=== PATIENT | male | born 1950 | race Caucasian/White ===

== ENCOUNTER 2017-09-01 18:20 | Inpatient (IN) | payer MEDICARE ==
[~2017-09-01] VITALS: Ht 167.6 cm; Wt 81.2 kg
[2017-09-01 18:25] VITALS: BP 146/81
[2017-09-01] MEDS ORDERED: DOCUSATE SODIUM 283 MG/5 ML MINI-ENEMA PR PRN (19:15)
[2017-09-01] MEDS ORDERED: ACETAMINOPHEN 325 MG TABLET PO PRN (19:15)
[2017-09-01] MEDS ORDERED: DEXTROSE 50%-WATER 25 GM/50 ML SYRINGE IVP PRN (20:30)
[2017-09-01] MEDS: DOCUSATE SODIUM 100 MG CAPSULE PO SCH (20:38)
[2017-09-01] MEDS: TAMSULOSIN HCL 0.4 MG CAPSULE PO SCH (20:38)
[2017-09-01] MEDS: FAMOTIDINE 20 MG TABLET PO SCH (20:38)
[2017-09-01 20:48] LABS: APPEARANCE,URINE CLEAR (CLEAR); GLUCOSE, URINE (UA) NEGATIVE (NEGATIVE); KETONES,URINE NEGATIVE (NEGATIVE); LEUKOCYTE ESTERASE ,URINE NEGATIVE (NEGATIVE); OCCULT BLOOD,URINE NEGATIVE (NEGATIVE); PH,URINE 6.5 (5.0-8.0); PROTEIN,URINE NEGATIVE (NEGATIVE)
[2017-09-01 20:51] LABS: ADD UA MICROSCOPIC NO
[2017-09-01] MEDS ORDERED: SENNA 187 MG TABLET PO SCH (21:00)
[2017-09-01] MEDS: INSULIN ASPART 100 UNITS/ML SQ PRN (21:24)
[2017-09-02 00:13] LABS: GLUCOSE,POINT OF CARE 173 MG/DL (70-110)
[2017-09-02 00:58] VITALS: BP 109/59
[2017-09-02 06:18] LABS: GLUCOSE,POINT OF CARE 84 MG/DL (70-110)
[2017-09-02 06:54] LABS: BASOPHILS % (AUTO) 0.8 % (0.0-2.0); EOSINOPHILS % (AUTO) 3.7 % (1.0-6.0); HEMATOCRIT 27.9 % (41-53); LYMPHOCYTES # (AUTO) 1.2 K/uL (1.0-4.8); LYMPHOCYTES % (AUTO) 40.1 % (22.0-44.0); MEAN CORPUSCULAR HEMOGLOBIN 36.6 pg (26.0-34.0); MEAN CORPUSCULAR HGB CONC 35.7 G/dL (31.0-37.0); MEAN CORPUSCULAR VOLUME 103 fL (80-100); MONOCYTES # (AUTO) 0.2 K/uL (0.1-1.0); MONOCYTES % (AUTO) 7.5 % (2.0-9.0); NEUTROPHILS # (AUTO) 1.5 K/uL (1.8-7.7); NEUTROPHILS % (AUTO) 47.9 % (40.0-70.0); RED BLOOD CELL COUNT(AUTO) 2.72 MIL/uL (4.50-5.90); RED CELL DISTRIBUTION WIDTH 15.2 % (11.5-14.5); WHITE BLOOD COUNT (AUTO) 3.1 K/uL (4.5-11.0)
[2017-09-02 07:05] LABS: ALANINE AMINOTRANSFERASE 41 U/L (12-78); ALBUMIN 2.1 g/dL (3.4-5.0); ANION GAP 7 mmol/L (8-16); ASPARTATE AMINOTRANSFERASE 85 U/L (15-37); BILIRUBIN,TOTAL 2.4 mg/dL (0.1-1.0); CALCIUM, TOTAL 7.7 mg/dL (8.8-10.5); CARBON DIOXIDE 22 mmol/L (22-29); CHLORIDE 109 mmol/L (98-107); CREATININE 0.78 mg/dL (0.60-1.30); GLOMERULAR FILTR. RATE CALC > 60 mL/min (>60); POTASSIUM 3.8 mmol/L (3.5-5.1); SODIUM SERUM 138 mmol/L (136-145); TOTAL PROTEIN, SERUM 6.2 g/dL (6.4-8.2); UREA NITROGEN, BLOOD 16 mg/dL (7-18)
[2017-09-02 07:44] VITALS: BP 118/58
[2017-09-02] MEDS: FAMOTIDINE 20 MG TABLET PO SCH ×2 (09:30→21:08)
[2017-09-02] MEDS: DOCUSATE SODIUM 100 MG CAPSULE PO SCH ×2 (09:31→21:08)
[2017-09-02] MEDS: LOSARTAN POTASSIUM 25 MG TABLET PO SCH (09:34)
[2017-09-02 10:00] LABS: PLATELET COUNT (AUTO) 55 K/uL (150-450)
[2017-09-02] MEDS ORDERED: TEMAZEPAM 15 MG CAPSULE PO PRN (10:15)
[2017-09-02 12:03] LABS: GLUCOSE,POINT OF CARE 137 MG/DL (70-110)
[2017-09-02 15:23] VITALS: BP 120/65
[2017-09-02 17:59] LABS: GLUCOSE,POINT OF CARE 134 MG/DL (70-110)
[2017-09-02] MEDS: SENNA 187 MG TABLET PO SCH (21:09)
[2017-09-02] MEDS: TAMSULOSIN HCL 0.4 MG CAPSULE PO SCH (21:09)
[2017-09-02 22:23] LABS: GLUCOSE,POINT OF CARE 134 MG/DL (70-110)
[2017-09-03 05:00] VITALS: BP 108/49
[2017-09-03 05:50] LABS: GLUCOSE,POINT OF CARE 85 MG/DL (70-110)
[2017-09-03 07:08] VITALS: BP 137/72
[2017-09-03] MEDS: DOCUSATE SODIUM 100 MG CAPSULE PO SCH ×2 (08:05→20:20)
[2017-09-03] MEDS: LOSARTAN POTASSIUM 25 MG TABLET PO SCH (08:05)
[2017-09-03] MEDS: FAMOTIDINE 20 MG TABLET PO SCH ×2 (08:06→20:20)
[2017-09-03 12:57] LABS: GLUCOSE,POINT OF CARE 149 MG/DL (70-110)
[2017-09-03] MEDS: INSULIN ASPART 100 UNITS/ML SQ PRN ×2 (13:05→18:47)
[2017-09-03 15:26] VITALS: BP 144/72
[2017-09-03 17:03] LABS: GLUCOSE,POINT OF CARE 149 MG/DL (70-110)
[2017-09-03] MEDS: TAMSULOSIN HCL 0.4 MG CAPSULE PO SCH (20:20)
[2017-09-03] MEDS: SENNA 187 MG TABLET PO SCH (20:20)
[2017-09-03 20:23] LABS: GLUCOSE,POINT OF CARE 138 MG/DL (70-110)
[2017-09-04 00:04] VITALS: BP 131/67
[2017-09-04 06:13] LABS: GLUCOSE,POINT OF CARE 80 MG/DL (70-110)
[2017-09-04 07:10] VITALS: BP 114/51
[2017-09-04] MEDS: FAMOTIDINE 20 MG TABLET PO SCH ×2 (07:57→20:54)
[2017-09-04] MEDS: DOCUSATE SODIUM 100 MG CAPSULE PO SCH ×2 (07:57→21:00)
[2017-09-04] MEDS: LOSARTAN POTASSIUM 25 MG TABLET PO SCH (07:58)
[2017-09-04 12:23] LABS: GLUCOSE,POINT OF CARE 129 MG/DL (70-110)
[2017-09-04 15:30] VITALS: BP 123/60
[2017-09-04 17:27] LABS: GLUCOSE,POINT OF CARE 132 MG/DL (70-110)
[2017-09-04] MEDS: TAMSULOSIN HCL 0.4 MG CAPSULE PO SCH (20:54)
[2017-09-04] MEDS: SENNA 187 MG TABLET PO SCH (21:00)
[2017-09-04 21:02] LABS: GLUCOSE,POINT OF CARE 148 MG/DL (70-110)
[2017-09-04] MEDS: INSULIN ASPART 100 UNITS/ML SQ PRN (21:31)
[2017-09-04 23:50] VITALS: BP 125/54
[2017-09-05 06:07] LABS: GLUCOSE,POINT OF CARE 80 MG/DL (70-110)
[2017-09-05 08:37] VITALS: BP 122/68
[2017-09-05] MEDS: LOSARTAN POTASSIUM 25 MG TABLET PO SCH (08:40)
[2017-09-05] MEDS: FAMOTIDINE 20 MG TABLET PO SCH ×2 (08:40→20:49)
[2017-09-05] MEDS: DOCUSATE SODIUM 100 MG CAPSULE PO SCH ×2 (08:41→20:50)
[2017-09-05 11:48] LABS: GLUCOSE,POINT OF CARE 132 MG/DL (70-110)
[2017-09-05 15:29] VITALS: BP 116/65
[2017-09-05 17:23] LABS: GLUCOSE,POINT OF CARE 130 MG/DL (70-110)
[2017-09-05] MEDS: TAMSULOSIN HCL 0.4 MG CAPSULE PO SCH (20:49)
[2017-09-05] MEDS: SENNA 187 MG TABLET PO SCH (20:50)
[2017-09-05 21:57] LABS: GLUCOSE,POINT OF CARE 132 MG/DL (70-110)
[2017-09-06] VITALS: BP 149/70
[2017-09-06 06:02] LABS: GLUCOSE,POINT OF CARE 82 MG/DL (70-110)
[2017-09-06 07:00] VITALS: BP 128/65
[2017-09-06] MEDS: FAMOTIDINE 20 MG TABLET PO SCH ×2 (08:04→20:59)
[2017-09-06] MEDS: LOSARTAN POTASSIUM 25 MG TABLET PO SCH (08:04)
[2017-09-06] MEDS: DOCUSATE SODIUM 100 MG CAPSULE PO SCH ×2 (08:04→20:58)
[2017-09-06 15:05] VITALS: BP 137/57
[2017-09-06] MEDS: INSULIN ASPART 100 UNITS/ML SQ PRN (18:00)
[2017-09-06] MEDS: SENNA 187 MG TABLET PO SCH (20:58)
[2017-09-06] MEDS: TAMSULOSIN HCL 0.4 MG CAPSULE PO SCH (20:59)
[2017-09-06 23:27] LABS: GLUCOSE,POINT OF CARE 125 MG/DL (70-110)
[2017-09-07 00:23] VITALS: BP 141/62
[2017-09-07 06:33] LABS: GLUCOSE,POINT OF CARE 125 MG/DL (70-110)
[2017-09-07 07:45] VITALS: BP 131/63
[2017-09-07] MEDS: LOSARTAN POTASSIUM 25 MG TABLET PO SCH (07:50)
[2017-09-07] MEDS: FAMOTIDINE 20 MG TABLET PO SCH ×2 (07:51→20:50)
[2017-09-07] MEDS: DOCUSATE SODIUM 100 MG CAPSULE PO SCH ×2 (07:51→20:49)
[2017-09-07] MEDS: INSULIN ASPART 100 UNITS/ML SQ PRN (12:42)
[2017-09-07 13:32] LABS: GLUCOSE,POINT OF CARE 154 MG/DL (70-110)
[2017-09-07 15:20] VITALS: BP 133/63
[2017-09-07 17:58] LABS: GLUCOSE COMMENT 1 Received Meds; GLUCOSE,POINT OF CARE 144 MG/DL (70-110)
[2017-09-07 17:58] LABS: GLUCOSE,POINT OF CARE 129 MG/DL (70-110)
[2017-09-07 17:58] LABS: GLUCOSE,POINT OF CARE 127 MG/DL (70-110)
[2017-09-07] MEDS: TAMSULOSIN HCL 0.4 MG CAPSULE PO SCH (20:49)
[2017-09-07] MEDS: SENNA 187 MG TABLET PO SCH (20:50)
[2017-09-07 23:35] VITALS: BP 142/73
[2017-09-08 03:42] LABS: GLUCOSE,POINT OF CARE 133 MG/DL (70-110)
[2017-09-08 05:53] LABS: GLUCOSE,POINT OF CARE 71 MG/DL (70-110)
[2017-09-08 06:14] LABS: BASOPHILS # (AUTO) 0.03 K/uL (0.00-0.20); BASOPHILS % (AUTO) 0.8 % (0.0-2.0); EOSINOPHILS % (AUTO) 2.81 % (1.0-6.0); HEMATOCRIT 29.8 % (41-53); HEMOGLOBIN 10.7 g/dL (13.5-17.5); LYMPHOCYTES # (AUTO) 1.4 K/uL (1.0-4.8); LYMPHOCYTES % (AUTO) 40.4 % (22.0-44.0); MEAN CORPUSCULAR HEMOGLOBIN 36.1 pg (26.0-34.0); MEAN CORPUSCULAR HGB CONC 35.8 G/dL (31.0-37.0); MEAN CORPUSCULAR VOLUME 101 fL (80-100); MONOCYTES # (AUTO) 0.3 K/uL (0.1-1.0); MONOCYTES % (AUTO) 7.9 % (2.0-9.0); NEUTROPHILS # (AUTO) 1.7 K/uL (1.8-7.7); NEUTROPHILS % (AUTO) 48.2 % (40.0-70.0); RED BLOOD CELL COUNT(AUTO) 2.96 MIL/uL (4.50-5.90); RED CELL DISTRIBUTION WIDTH 15.3 % (11.5-14.5); WHITE BLOOD COUNT (AUTO) 3.4 K/uL (4.5-11.0)
[2017-09-08 06:34] LABS: ALANINE AMINOTRANSFERASE 42 U/L (12-78); ALBUMIN 2.3 g/dL (3.4-5.0); ANION GAP 6 mmol/L (8-16); ASPARTATE AMINOTRANSFERASE 83 U/L (15-37); BILIRUBIN,TOTAL 2.1 mg/dL (0.1-1.0); CARBON DIOXIDE 23 mmol/L (22-29); CHLORIDE 105 mmol/L (98-107); CREATININE 0.71 mg/dL (0.60-1.30); GLOMERULAR FILTR. RATE CALC > 60 mL/min (>60); POTASSIUM 4.1 mmol/L (3.5-5.1); SODIUM SERUM 134 mmol/L (136-145); TOTAL PROTEIN, SERUM 6.4 g/dL (6.4-8.2); UREA NITROGEN, BLOOD 17 mg/dL (7-18)
[2017-09-08 07:19] LABS: PLATELET COUNT (AUTO) 52 K/uL (150-450)
[2017-09-08] MEDS: FAMOTIDINE 20 MG TABLET PO SCH ×2 (07:59→20:34)
[2017-09-08] MEDS: LOSARTAN POTASSIUM 25 MG TABLET PO SCH (07:59)
[2017-09-08] MEDS: DOCUSATE SODIUM 100 MG CAPSULE PO SCH ×2 (07:59→20:34)
[2017-09-08 08:07] LABS: RBC MORPHOLOGY COMMENT ABNORMAL RBC MORPH
[2017-09-08 08:16] VITALS: BP 133/66
[2017-09-08 15:34] VITALS: BP 130/63
[2017-09-08 17:42] LABS: GLUCOSE,POINT OF CARE 129 MG/DL (70-110)
[2017-09-08 17:52] LABS: GLUCOSE,POINT OF CARE 105 MG/DL (70-110)
[2017-09-08] MEDS: TAMSULOSIN HCL 0.4 MG CAPSULE PO SCH (20:34)
[2017-09-08] MEDS: SENNA 187 MG TABLET PO SCH (20:34)
[2017-09-08 23:42] LABS: GLUCOSE,POINT OF CARE 119 MG/DL (70-110)
[2017-09-09 01:51] VITALS: BP 120/55
[2017-09-09 06:12] LABS: GLUCOSE,POINT OF CARE 72 MG/DL (70-110)
[2017-09-09 07:35] VITALS: BP 112/48
[2017-09-09] MEDS: FOLIC ACID 1 MG TABLET PO SCH (08:00)
[2017-09-09] MEDS: DOCUSATE SODIUM 100 MG CAPSULE PO SCH ×2 (08:00→20:05)
[2017-09-09] MEDS: FAMOTIDINE 20 MG TABLET PO SCH ×2 (08:01→20:05)
[2017-09-09] MEDS: LOSARTAN POTASSIUM 25 MG TABLET PO SCH (08:01)
[2017-09-09 11:00] VITALS: BP 105/57
[2017-09-09 12:22] LABS: GLUCOSE,POINT OF CARE 145 MG/DL (70-110)
[2017-09-09] MEDS: INSULIN ASPART 100 UNITS/ML SQ PRN ×2 (13:10→18:07)
[2017-09-09 15:43] VITALS: BP 131/59
[2017-09-09 18:17] LABS: GLUCOSE COMMENT 1 Received Meds; GLUCOSE,POINT OF CARE 149 MG/DL (70-110)
[2017-09-09] MEDS: ACETAMINOPHEN 325 MG TABLET PO PRN (20:05)
[2017-09-09] MEDS: SENNA 187 MG TABLET PO SCH (20:05)
[2017-09-09] MEDS: TAMSULOSIN HCL 0.4 MG CAPSULE PO SCH (20:05)
[2017-09-09 22:32] LABS: GLUCOSE,POINT OF CARE 113 MG/DL (70-110)
[2017-09-10 00:38] VITALS: BP 119/59
[2017-09-10 06:28] LABS: GLUCOSE,POINT OF CARE 84 MG/DL (70-110)
[2017-09-10 07:40] VITALS: BP 119/58
[2017-09-10] MEDS: DOCUSATE SODIUM 100 MG CAPSULE PO SCH ×2 (08:39→21:03)
[2017-09-10] MEDS: FAMOTIDINE 20 MG TABLET PO SCH ×2 (08:39→21:03)
[2017-09-10] MEDS: LOSARTAN POTASSIUM 25 MG TABLET PO SCH (08:40)
[2017-09-10] MEDS: FOLIC ACID 1 MG TABLET PO SCH (08:40)
[2017-09-10] MEDS: INSULIN ASPART 100 UNITS/ML SQ PRN (12:34)
[2017-09-10 12:37] LABS: GLUCOSE COMMENT 1 Received Meds; GLUCOSE,POINT OF CARE 146 MG/DL (70-110)
[2017-09-10 15:07] VITALS: BP 128/63
[2017-09-10] MEDS: SENNA 187 MG TABLET PO SCH (21:03)
[2017-09-10] MEDS: TAMSULOSIN HCL 0.4 MG CAPSULE PO SCH (21:04)
[2017-09-10 21:47] LABS: GLUCOSE,POINT OF CARE 116 MG/DL (70-110)
[2017-09-10 21:52] LABS: GLUCOSE,POINT OF CARE 127 MG/DL (70-110)
[2017-09-11] VITALS (7 sets, daily range): BP systolic 108–175; BP diastolic 60–88
[2017-09-11] MEDS: LOSARTAN POTASSIUM 25 MG TABLET PO SCH (09:00)
[2017-09-11] MEDS: DOCUSATE SODIUM 100 MG CAPSULE PO SCH ×2 (09:44→21:06)
[2017-09-11] MEDS: FOLIC ACID 1 MG TABLET PO SCH (09:44)
[2017-09-11] MEDS: FAMOTIDINE 20 MG TABLET PO SCH ×2 (09:44→21:06)
[2017-09-11 12:48] LABS: GLUCOSE,POINT OF CARE 160 MG/DL (70-110)
[2017-09-11 12:48] LABS: GLUCOSE,POINT OF CARE 79 MG/DL (70-110)
[2017-09-11 17:33] LABS: GLUCOSE,POINT OF CARE 123 MG/DL (70-110)
[2017-09-11] MEDS: SENNA 187 MG TABLET PO SCH (21:06)
[2017-09-11] MEDS: TAMSULOSIN HCL 0.4 MG CAPSULE PO SCH (21:06)
[2017-09-11 21:43] LABS: GLUCOSE,POINT OF CARE 117 MG/DL (70-110)
[2017-09-11] MEDS: HydrALAZINE HCL 10 MG TABLET PO PRN ×2 (22:40→22:52)
[2017-09-11] MEDS: CALCIUM CARBONATE 500 MG CHEWABLE TABLET CHEW PRN (22:52)
[2017-09-11] MEDS ORDERED: HydrALAZINE HCL 10 MG TABLET PO ONE (23:00)
[2017-09-11 23:29] LABS: BASOPHILS % (AUTO) 2.3 % (0.0-2.0); HEMATOCRIT 32.9 % (41-53); HEMOGLOBIN 11.8 g/dL (13.5-17.5); LYMPHOCYTES # (AUTO) 1.5 K/uL (1.0-4.8); LYMPHOCYTES % (AUTO) 33.1 % (22.0-44.0); MEAN CORPUSCULAR HEMOGLOBIN 36.5 pg (26.0-34.0); MEAN CORPUSCULAR HGB CONC 35.9 G/dL (31.0-37.0); MEAN CORPUSCULAR VOLUME 102 fL (80-100); MONOCYTES # (AUTO) 0.1 K/uL (0.1-1.0); MONOCYTES % (AUTO) 2.2 % (2.0-9.0); NEUTROPHILS # (AUTO) 2.8 K/uL (1.8-7.7); NEUTROPHILS % (AUTO) 60.4 % (40.0-70.0); PLATELET COUNT (AUTO) 57 K/uL (150-450); RED BLOOD CELL COUNT(AUTO) 3.24 MIL/uL (4.50-5.90); RED CELL DISTRIBUTION WIDTH 14.9 % (11.5-14.5); WHITE BLOOD COUNT (AUTO) 4.6 K/uL (4.5-11.0)
[2017-09-11 23:43] LABS: ANION GAP 5 mmol/L (8-16); CALCIUM, TOTAL 8.2 mg/dL (8.8-10.5); CARBON DIOXIDE 26 mmol/L (22-29); CHLORIDE 103 mmol/L (98-107); CREATININE 0.82 mg/dL (0.60-1.30); GLOMERULAR FILTR. RATE CALC > 60 mL/min (>60); POTASSIUM 4.1 mmol/L (3.5-5.1); SODIUM SERUM 134 mmol/L (136-145); UREA NITROGEN, BLOOD 18 mg/dL (7-18)
[2017-09-11] MEDS: ACETAMINOPHEN 325 MG TABLET PO PRN (23:49)
[2017-09-12 00:17] LABS: RBC MORPHOLOGY COMMENT ABNORMAL RBC MORPH
[2017-09-12 00:49] VITALS: BP 147/69
[2017-09-12 06:03] LABS: GLUCOSE,POINT OF CARE 103 MG/DL (70-110)
[2017-09-12 06:04] VITALS: BP 94/50
[2017-09-12 07:15] VITALS: BP 96/52
[2017-09-12] MEDS: FAMOTIDINE 20 MG TABLET PO SCH ×2 (08:09→21:21)
[2017-09-12] MEDS: FOLIC ACID 1 MG TABLET PO SCH (08:09)
[2017-09-12] MEDS: DOCUSATE SODIUM 100 MG CAPSULE PO SCH ×2 (08:10→21:21)
[2017-09-12] MEDS: LOSARTAN POTASSIUM 25 MG TABLET PO SCH (08:10)
[2017-09-12 08:47] LABS: BASOPHILS # (AUTO) 0.04 K/uL (0.00-0.20); BASOPHILS % (AUTO) 0.5 % (0.0-2.0); EOSINOPHILS # (AUTO) 0.01 K/uL (0.00-0.70); EOSINOPHILS % (AUTO) 0.07 % (1.0-6.0); HEMATOCRIT 30.6 % (41-53); HEMOGLOBIN 10.6 g/dL (13.5-17.5); LYMPHOCYTES # (AUTO) 1.4 K/uL (1.0-4.8); LYMPHOCYTES % (AUTO) 18.7 % (22.0-44.0); MEAN CORPUSCULAR HEMOGLOBIN 35.9 pg (26.0-34.0); MEAN CORPUSCULAR HGB CONC 34.7 G/dL (31.0-37.0); MEAN CORPUSCULAR VOLUME 104 fL (80-100); MONOCYTES # (AUTO) 0.3 K/uL (0.1-1.0); MONOCYTES % (AUTO) 3.4 % (2.0-9.0); NEUTROPHILS # (AUTO) 5.9 K/uL (1.8-7.7); NEUTROPHILS % (AUTO) 77.3 % (40.0-70.0); RED BLOOD CELL COUNT(AUTO) 2.96 MIL/uL (4.50-5.90); RED CELL DISTRIBUTION WIDTH 14.7 % (11.5-14.5); WHITE BLOOD COUNT (AUTO) 7.7 K/uL (4.5-11.0)
[2017-09-12 08:48] LABS: ANION GAP 6 mmol/L (8-16); CALCIUM, TOTAL 7.9 mg/dL (8.8-10.5); CARBON DIOXIDE 23 mmol/L (22-29); CHLORIDE 103 mmol/L (98-107); CREATININE 0.99 mg/dL (0.60-1.30); GLOMERULAR FILTR. RATE CALC > 60 mL/min (>60); POTASSIUM 4.1 mmol/L (3.5-5.1); SODIUM SERUM 132 mmol/L (136-145); UREA NITROGEN, BLOOD 22 mg/dL (7-18)
[2017-09-12 09:36] LABS: PLATELET COUNT (AUTO) 50 K/uL (150-450)
[2017-09-12 09:55] LABS: GLUCOSE, URINE (UA) NEGATIVE (NEGATIVE); KETONES,URINE TRACE mg/dL (NEGATIVE); LEUKOCYTE ESTERASE ,URINE SMALL (NEGATIVE); OCCULT BLOOD,URINE NEGATIVE (NEGATIVE); PROTEIN,URINE NEGATIVE (NEGATIVE)
[2017-09-12 10:08] LABS: APPEARANCE,URINE HAZY (CLEAR); RBC,URINE None Seen /HPF (0-2)
[2017-09-12 10:10] LABS: SQUAMOUS EPITHELIAL CELL,UR Rare /LPF (None Seen)
[2017-09-12 10:39] VITALS: BP 113/52
[2017-09-12 11:59] LABS: GLUCOSE,POINT OF CARE 124 MG/DL (70-110)
[2017-09-12 15:15] VITALS: BP 116/58
[2017-09-12 17:24] LABS: GLUCOSE,POINT OF CARE 107 MG/DL (70-110)
[2017-09-12 20:09] VITALS: BP 128/62
[2017-09-12] MEDS: CALCIUM CARBONATE 500 MG CHEWABLE TABLET CHEW PRN (20:15)
[2017-09-12] MEDS: SENNA 187 MG TABLET PO SCH (21:21)
[2017-09-12] MEDS: CALCIUM CIT/VITAMIN D3 200 MG-250 UNITS TABLET PO SCH (21:21)
[2017-09-12] MEDS: TAMSULOSIN HCL 0.4 MG CAPSULE PO SCH (21:21)
[2017-09-12 23:59] LABS: GLUCOSE,POINT OF CARE 108 MG/DL (70-110)
[2017-09-13 00:08] VITALS: BP 149/75
[2017-09-13 04:00] VITALS: BP 126/58
[2017-09-13 06:15] LABS: GLUCOSE,POINT OF CARE 108 MG/DL (70-110)
[2017-09-13 06:22] LABS: BASOPHILS # (AUTO) 0.02 K/uL (0.00-0.20); BASOPHILS % (AUTO) 0.5 % (0.0-2.0); EOSINOPHILS # (AUTO) 0.08 K/uL (0.00-0.70); EOSINOPHILS % (AUTO) 1.82 % (1.0-6.0); HEMATOCRIT 29.8 % (41-53); HEMOGLOBIN 10.3 g/dL (13.5-17.5); LYMPHOCYTES # (AUTO) 1.2 K/uL (1.0-4.8); LYMPHOCYTES % (AUTO) 27.4 % (22.0-44.0); MEAN CORPUSCULAR HEMOGLOBIN 36.1 pg (26.0-34.0); MEAN CORPUSCULAR HGB CONC 34.6 G/dL (31.0-37.0); MEAN CORPUSCULAR VOLUME 104 fL (80-100); MONOCYTES # (AUTO) 0.3 K/uL (0.1-1.0); MONOCYTES % (AUTO) 6.6 % (2.0-9.0); NEUTROPHILS # (AUTO) 2.8 K/uL (1.8-7.7); NEUTROPHILS % (AUTO) 63.7 % (40.0-70.0); PLATELET COUNT (AUTO) 48 K/uL (150-450); RED BLOOD CELL COUNT(AUTO) 2.86 MIL/uL (4.50-5.90); RED CELL DISTRIBUTION WIDTH 14.9 % (11.5-14.5); WHITE BLOOD COUNT (AUTO) 4.4 K/uL (4.5-11.0)
[2017-09-13 06:40] LABS: ALANINE AMINOTRANSFERASE 47 U/L (12-78); ALBUMIN 2.3 g/dL (3.4-5.0); ANION GAP 8 mmol/L (8-16); ASPARTATE AMINOTRANSFERASE 97 U/L (15-37); BILIRUBIN,TOTAL 2.1 mg/dL (0.1-1.0); CALCIUM, TOTAL 8.2 mg/dL (8.8-10.5); CARBON DIOXIDE 23 mmol/L (22-29); CHLORIDE 105 mmol/L (98-107); CREATININE 0.85 mg/dL (0.60-1.30); GLOMERULAR FILTR. RATE CALC > 60 mL/min (>60); SODIUM SERUM 136 mmol/L (136-145); TOTAL PROTEIN, SERUM 6.8 g/dL (6.4-8.2); UREA NITROGEN, BLOOD 18 mg/dL (7-18)
[2017-09-13 07:32] LABS: RBC MORPHOLOGY COMMENT ABNORMAL RBC MORPH
[2017-09-13 08:00] VITALS: BP 125/65
[2017-09-13 08:23] VITALS: BP 105/53
[2017-09-13] MEDS: FOLIC ACID 1 MG TABLET PO SCH (08:25)
[2017-09-13] MEDS: CALCIUM CIT/VITAMIN D3 200 MG-250 UNITS TABLET PO SCH ×2 (08:25→20:35)
[2017-09-13] MEDS: LOSARTAN POTASSIUM 25 MG TABLET PO SCH ×2 (08:25→20:36)
[2017-09-13] MEDS: DOCUSATE SODIUM 100 MG CAPSULE PO SCH ×2 (08:25→20:35)
[2017-09-13] MEDS: FAMOTIDINE 20 MG TABLET PO SCH ×2 (08:25→20:35)
[2017-09-13] MEDS ORDERED: OxyCODONE HCL 5 MG IR TABLET PO PRN (11:30)
[2017-09-13 12:09] LABS: GLUCOSE,POINT OF CARE 133 MG/DL (70-110)
[2017-09-13 15:10] VITALS: BP 110/53
[2017-09-13 18:02] LABS: GLUCOSE,POINT OF CARE 129 MG/DL (70-110)
[2017-09-13 20:31] VITALS: BP 137/67
[2017-09-13] MEDS: TAMSULOSIN HCL 0.4 MG CAPSULE PO SCH (20:35)
[2017-09-13] MEDS: SENNA 187 MG TABLET PO SCH (20:35)
[2017-09-13 21:58] LABS: GLUCOSE,POINT OF CARE 117 MG/DL (70-110)
[2017-09-14 00:15] VITALS: BP 147/72
[2017-09-14 03:33] VITALS: BP 125/65
[2017-09-14 06:08] LABS: GLUCOSE,POINT OF CARE 80 MG/DL (70-110)
[2017-09-14 07:24] VITALS: BP 131/59
[2017-09-14] MEDS: FOLIC ACID 1 MG TABLET PO SCH (07:58)
[2017-09-14] MEDS: CALCIUM CIT/VITAMIN D3 200 MG-250 UNITS TABLET PO SCH ×2 (07:58→20:43)
[2017-09-14] MEDS: FAMOTIDINE 20 MG TABLET PO SCH ×2 (07:58→20:43)
[2017-09-14] MEDS: DOCUSATE SODIUM 100 MG CAPSULE PO SCH ×2 (07:58→20:43)
[2017-09-14] MEDS: INSULIN ASPART 100 UNITS/ML SQ PRN (12:33)
[2017-09-14 15:08] VITALS: BP 116/60
[2017-09-14 20:41] VITALS: BP 143/71
[2017-09-14] MEDS: TAMSULOSIN HCL 0.4 MG CAPSULE PO SCH (20:43)
[2017-09-14] MEDS: SENNA 187 MG TABLET PO SCH (20:43)
[2017-09-14] MEDS: LOSARTAN POTASSIUM 25 MG TABLET PO SCH (20:43)
[2017-09-14 23:05] VITALS: BP 140/65
[2017-09-15 00:10] LABS: GLUCOSE,POINT OF CARE 115 MG/DL (70-110)
[2017-09-15 00:11] LABS: GLUCOSE,POINT OF CARE 113 MG/DL (70-110)
[2017-09-15 06:13] LABS: GLUCOSE,POINT OF CARE 87 MG/DL (70-110)
[2017-09-15 07:31] VITALS: BP 112/58
[2017-09-15] MEDS: DOCUSATE SODIUM 100 MG CAPSULE PO SCH (07:36)
[2017-09-15] MEDS: CALCIUM CIT/VITAMIN D3 200 MG-250 UNITS TABLET PO SCH ×2 (07:36→20:09)
[2017-09-15] MEDS: FAMOTIDINE 20 MG TABLET PO SCH ×2 (07:37→20:09)
[2017-09-15] MEDS: FOLIC ACID 1 MG TABLET PO SCH (07:37)
[2017-09-15 15:14] VITALS: BP 124/57
[2017-09-15 17:42] LABS: GLUCOSE,POINT OF CARE 131 MG/DL (70-110)
[2017-09-15 20:05] VITALS: BP 149/72
[2017-09-15] MEDS: LOSARTAN POTASSIUM 25 MG TABLET PO SCH (20:09)
[2017-09-15] MEDS: TAMSULOSIN HCL 0.4 MG CAPSULE PO SCH (20:09)
[2017-09-15] MEDS: SENNA 187 MG TABLET PO SCH (20:09)
[2017-09-15] MEDS: DOCUSATE SODIUM 250 MG CAPSULE PO SCH (20:09)
[2017-09-15] MEDS: INSULIN ASPART 100 UNITS/ML SQ PRN (21:48)
[2017-09-15 22:32] LABS: GLUCOSE,POINT OF CARE 142 MG/DL (70-110)
[2017-09-16 00:54] VITALS: BP 143/65
[2017-09-16 05:13] LABS: GLUCOSE,POINT OF CARE 112 MG/DL (70-110)
[2017-09-16 05:13] LABS: GLUCOSE,POINT OF CARE 142 MG/DL (70-110)
[2017-09-16 06:18] LABS: GLUCOSE,POINT OF CARE 81 MG/DL (70-110)
[2017-09-16 07:35] VITALS: BP 117/57
[2017-09-16] MEDS: CALCIUM CIT/VITAMIN D3 200 MG-250 UNITS TABLET PO SCH ×2 (08:27→21:11)
[2017-09-16] MEDS: FAMOTIDINE 20 MG TABLET PO SCH ×2 (08:27→21:12)
[2017-09-16] MEDS: DOCUSATE SODIUM 250 MG CAPSULE PO SCH ×2 (08:27→21:12)
[2017-09-16] MEDS: FOLIC ACID 1 MG TABLET PO SCH (08:28)
[2017-09-16 13:42] LABS: GLUCOSE,POINT OF CARE 134 MG/DL (70-110)
[2017-09-16 15:10] VITALS: BP 121/55
[2017-09-16 17:23] LABS: GLUCOSE,POINT OF CARE 129 MG/DL (70-110)
[2017-09-16] MEDS: TAMSULOSIN HCL 0.4 MG CAPSULE PO SCH (21:11)
[2017-09-16] MEDS: SENNA 187 MG TABLET PO SCH (21:11)
[2017-09-16] MEDS: LOSARTAN POTASSIUM 25 MG TABLET PO SCH (21:12)
[2017-09-16 22:08] LABS: GLUCOSE,POINT OF CARE 112 MG/DL (70-110)
[2017-09-16 22:22] VITALS: BP 130/51
[2017-09-17 00:20] VITALS: BP 125/60
[2017-09-17 06:40] LABS: GLUCOSE,POINT OF CARE 91 MG/DL (70-110)
[2017-09-17 07:30] VITALS: BP 106/59
[2017-09-17] MEDS: FAMOTIDINE 20 MG TABLET PO SCH ×2 (08:11→20:07)
[2017-09-17] MEDS: CALCIUM CIT/VITAMIN D3 200 MG-250 UNITS TABLET PO SCH ×2 (08:11→20:07)
[2017-09-17] MEDS: FOLIC ACID 1 MG TABLET PO SCH (08:11)
[2017-09-17] MEDS: DOCUSATE SODIUM 250 MG CAPSULE PO SCH ×2 (08:11→20:07)
[2017-09-17 10:35] VITALS: BP 105/57
[2017-09-17 15:30] VITALS: BP 124/58
[2017-09-17 17:12] LABS: GLUCOSE,POINT OF CARE 122 MG/DL (70-110)
[2017-09-17 17:13] LABS: GLUCOSE,POINT OF CARE 138 MG/DL (70-110)
[2017-09-17 20:06] VITALS: BP 132/60
[2017-09-17] MEDS: SENNA 187 MG TABLET PO SCH (20:07)
[2017-09-17] MEDS: TAMSULOSIN HCL 0.4 MG CAPSULE PO SCH (20:07)
[2017-09-17] MEDS: LOSARTAN POTASSIUM 25 MG TABLET PO SCH (20:07)
[2017-09-17] MEDS: INSULIN ASPART 100 UNITS/ML SQ PRN (21:24)
[2017-09-17 21:32] LABS: GLUCOSE,POINT OF CARE 148 MG/DL (70-110)
[2017-09-18 00:33] VITALS: BP 121/60
[2017-09-18 05:58] LABS: GLUCOSE,POINT OF CARE 90 MG/DL (70-110)
[2017-09-18 06:00] VITALS: BP 120/57
[2017-09-18 07:45] VITALS: BP 106/57
[2017-09-18] MEDS: FAMOTIDINE 20 MG TABLET PO SCH ×2 (08:34→21:02)
[2017-09-18] MEDS: DOCUSATE SODIUM 250 MG CAPSULE PO SCH ×2 (08:34→21:02)
[2017-09-18] MEDS: FOLIC ACID 1 MG TABLET PO SCH (08:34)
[2017-09-18] MEDS: CALCIUM CIT/VITAMIN D3 200 MG-250 UNITS TABLET PO SCH ×2 (08:34→21:02)
[2017-09-18 12:10] LABS: GLUCOSE COMMENT 1 Received Meds; GLUCOSE,POINT OF CARE 183 MG/DL (70-110)
[2017-09-18] MEDS: INSULIN ASPART 100 UNITS/ML SQ PRN ×2 (12:17→21:18)
[2017-09-18 15:15] VITALS: BP 116/56
[2017-09-18 17:33] LABS: GLUCOSE,POINT OF CARE 127 MG/DL (70-110)
[2017-09-18 20:56] VITALS: BP 140/64
[2017-09-18] MEDS: LOSARTAN POTASSIUM 25 MG TABLET PO SCH (20:58)
[2017-09-18] MEDS: TAMSULOSIN HCL 0.4 MG CAPSULE PO SCH (21:02)
[2017-09-18] MEDS: SENNA 187 MG TABLET PO SCH (21:02)
[2017-09-18 22:57] LABS: GLUCOSE,POINT OF CARE 149 MG/DL (70-110)
[2017-09-18 23:47] VITALS: BP 134/66
[2017-09-19 05:53] LABS: GLUCOSE,POINT OF CARE 85 MG/DL (70-110)
[2017-09-19] MEDS: FOLIC ACID 1 MG TABLET PO SCH (08:39)
[2017-09-19] MEDS: CALCIUM CIT/VITAMIN D3 200 MG-250 UNITS TABLET PO SCH ×2 (08:39→20:18)
[2017-09-19] MEDS: DOCUSATE SODIUM 250 MG CAPSULE PO SCH ×2 (08:39→20:18)
[2017-09-19] MEDS: FAMOTIDINE 20 MG TABLET PO SCH ×2 (08:39→20:19)
[2017-09-19 09:46] VITALS: BP 102/58
[2017-09-19 10:27] LABS: GLUCOSE COMMENT 1 Received Meds; GLUCOSE,POINT OF CARE 144 MG/DL (70-110)
[2017-09-19 12:03] LABS: GLUCOSE,POINT OF CARE 127 MG/DL (70-110)
[2017-09-19 15:13] VITALS: BP 110/55
[2017-09-19] MEDS: LOSARTAN POTASSIUM 25 MG TABLET PO SCH (20:00)
[2017-09-19 20:15] VITALS: BP 117/58
[2017-09-19] MEDS: TAMSULOSIN HCL 0.4 MG CAPSULE PO SCH (20:18)
[2017-09-19] MEDS: SENNA 187 MG TABLET PO SCH (20:18)
[2017-09-19] MEDS: INSULIN ASPART 100 UNITS/ML SQ PRN (21:18)
[2017-09-19 21:43] LABS: GLUCOSE COMMENT 1 Received Meds; GLUCOSE,POINT OF CARE 150 MG/DL (70-110)
[2017-09-19 23:13] LABS: GLUCOSE,POINT OF CARE 128 MG/DL (70-110)
[2017-09-20 03:15] VITALS: BP 138/60
[2017-09-20 06:02] LABS: GLUCOSE,POINT OF CARE 84 MG/DL (70-110)
[2017-09-20 07:23] VITALS: BP 123/63
[2017-09-20] MEDS: DOCUSATE SODIUM 250 MG CAPSULE PO SCH ×2 (08:10→20:08)
[2017-09-20] MEDS: CALCIUM CIT/VITAMIN D3 200 MG-250 UNITS TABLET PO SCH ×2 (08:10→20:08)
[2017-09-20] MEDS: FAMOTIDINE 20 MG TABLET PO SCH ×2 (08:10→20:08)
[2017-09-20] MEDS: FOLIC ACID 1 MG TABLET PO SCH (08:10)
[2017-09-20 13:12] LABS: GLUCOSE,POINT OF CARE 138 MG/DL (70-110)
[2017-09-20 15:49] VITALS: BP 130/63
[2017-09-20 20:04] VITALS: BP 149/79
[2017-09-20] MEDS: TAMSULOSIN HCL 0.4 MG CAPSULE PO SCH (20:08)
[2017-09-20] MEDS: SENNA 187 MG TABLET PO SCH (20:08)
[2017-09-20] MEDS: LOSARTAN POTASSIUM 25 MG TABLET PO SCH (20:08)
[2017-09-20 23:24] VITALS: BP 143/77
[2017-09-21 05:28] LABS: GLUCOSE,POINT OF CARE 129 MG/DL (70-110)
[2017-09-21 05:28] LABS: GLUCOSE,POINT OF CARE 116 MG/DL (70-110)
[2017-09-21 06:03] LABS: GLUCOSE,POINT OF CARE 83 MG/DL (70-110)
[2017-09-21 07:08] VITALS: BP 109/55
[2017-09-21] MEDS: CALCIUM CIT/VITAMIN D3 200 MG-250 UNITS TABLET PO SCH ×2 (08:32→20:13)
[2017-09-21] MEDS: FAMOTIDINE 20 MG TABLET PO SCH ×2 (08:32→20:12)
[2017-09-21] MEDS: FOLIC ACID 1 MG TABLET PO SCH (08:32)
[2017-09-21] MEDS: DOCUSATE SODIUM 250 MG CAPSULE PO SCH ×2 (08:32→20:12)
[2017-09-21 11:53] LABS: GLUCOSE,POINT OF CARE 122 MG/DL (70-110)
[2017-09-21 15:28] VITALS: BP 120/55
[2017-09-21] MEDS: TAMSULOSIN HCL 0.4 MG CAPSULE PO SCH (20:12)
[2017-09-21] MEDS: SENNA 187 MG TABLET PO SCH (20:12)
[2017-09-21 20:13] VITALS: BP 140/56
[2017-09-21] MEDS: LOSARTAN POTASSIUM 25 MG TABLET PO SCH (20:13)
[2017-09-21 23:03] LABS: GLUCOSE,POINT OF CARE 114 MG/DL (70-110)
[2017-09-21 23:42] VITALS: BP 137/73
[2017-09-22 05:59] LABS: GLUCOSE,POINT OF CARE 119 MG/DL (70-110)
[2017-09-22 06:08] LABS: GLUCOSE,POINT OF CARE 82 MG/DL (70-110)
[2017-09-22 07:15] VITALS: BP 117/57
[2017-09-22] MEDS: FAMOTIDINE 20 MG TABLET PO SCH ×2 (08:54→20:16)
[2017-09-22] MEDS: FOLIC ACID 1 MG TABLET PO SCH (08:54)
[2017-09-22] MEDS: DOCUSATE SODIUM 250 MG CAPSULE PO SCH ×2 (08:55→20:16)
[2017-09-22] MEDS: CALCIUM CIT/VITAMIN D3 200 MG-250 UNITS TABLET PO SCH ×2 (08:55→20:16)
[2017-09-22 13:08] LABS: GLUCOSE,POINT OF CARE 113 MG/DL (70-110)
[2017-09-22 15:24] VITALS: BP 125/56
[2017-09-22] MEDS: LOSARTAN POTASSIUM 25 MG TABLET PO SCH (20:16)
[2017-09-22] MEDS: SENNA 187 MG TABLET PO SCH (20:16)
[2017-09-22] MEDS: TAMSULOSIN HCL 0.4 MG CAPSULE PO SCH (20:16)
[2017-09-22 21:12] LABS: GLUCOSE,POINT OF CARE 164 MG/DL (70-110)
[2017-09-22] MEDS: INSULIN ASPART 100 UNITS/ML SQ PRN (21:22)
[2017-09-22 21:32] LABS: GLUCOSE,POINT OF CARE 127 MG/DL (70-110)
[2017-09-22 23:52] VITALS: BP 131/52
[2017-09-23 06:13] LABS: GLUCOSE,POINT OF CARE 87 MG/DL (70-110)
[2017-09-23 06:30] LABS: BASOPHILS % (AUTO) 0.6 % (0.0-2.0); EOSINOPHILS % (AUTO) 1.7 % (1.0-6.0); HEMATOCRIT 29.9 % (41-53); HEMOGLOBIN 10.8 g/dL (13.5-17.5); LYMPHOCYTES # (AUTO) 1.2 K/uL (1.0-4.8); LYMPHOCYTES % (AUTO) 30.7 % (22.0-44.0); MEAN CORPUSCULAR HEMOGLOBIN 36.7 pg (26.0-34.0); MEAN CORPUSCULAR VOLUME 102 fL (80-100); MONOCYTES # (AUTO) 0.2 K/uL (0.1-1.0); MONOCYTES % (AUTO) 5.7 % (2.0-9.0); NEUTROPHILS # (AUTO) 2.4 K/uL (1.8-7.7); NEUTROPHILS % (AUTO) 61.3 % (40.0-70.0); PLATELET COUNT (AUTO) 59 K/uL (150-450); RED BLOOD CELL COUNT(AUTO) 2.94 MIL/uL (4.50-5.90); RED CELL DISTRIBUTION WIDTH 14.6 % (11.5-14.5); WHITE BLOOD COUNT (AUTO) 3.9 K/uL (4.5-11.0)
[2017-09-23 06:44] LABS: ANION GAP 8 mmol/L (8-16); CALCIUM, TOTAL 7.8 mg/dL (8.8-10.5); CARBON DIOXIDE 23 mmol/L (22-29); CHLORIDE 105 mmol/L (98-107); CREATININE 0.76 mg/dL (0.60-1.30); GLOMERULAR FILTR. RATE CALC > 60 mL/min (>60); POTASSIUM 3.9 mmol/L (3.5-5.1); SODIUM SERUM 136 mmol/L (136-145); UREA NITROGEN, BLOOD 18 mg/dL (7-18)
[2017-09-23 07:11] VITALS: BP 125/57
[2017-09-23 07:26] LABS: RBC MORPHOLOGY COMMENT ABNORMAL RBC MORPH
[2017-09-23] MEDS: FAMOTIDINE 20 MG TABLET PO SCH ×2 (07:32→20:40)
[2017-09-23] MEDS: CALCIUM CIT/VITAMIN D3 200 MG-250 UNITS TABLET PO SCH ×2 (07:32→20:40)
[2017-09-23] MEDS: DOCUSATE SODIUM 250 MG CAPSULE PO SCH ×2 (07:32→20:40)
[2017-09-23] MEDS: FOLIC ACID 1 MG TABLET PO SCH (07:32)
[2017-09-23 12:43] LABS: GLUCOSE,POINT OF CARE 110 MG/DL (70-110)
[2017-09-23 15:24] VITALS: BP 127/57
[2017-09-23] MEDS: TAMSULOSIN HCL 0.4 MG CAPSULE PO SCH (20:40)
[2017-09-23] MEDS: SENNA 187 MG TABLET PO SCH (20:40)
[2017-09-23] MEDS: LOSARTAN POTASSIUM 25 MG TABLET PO SCH (20:40)
[2017-09-23 22:18] LABS: GLUCOSE,POINT OF CARE 111 MG/DL (70-110)
[2017-09-23 22:47] LABS: GLUCOSE,POINT OF CARE 117 MG/DL (70-110)
[2017-09-24 00:23] VITALS: BP 134/60
[2017-09-24 05:58] LABS: GLUCOSE,POINT OF CARE 83 MG/DL (70-110)
[2017-09-24 07:15] VITALS: BP_SYST 110; BP_SYST 120; BP_DIAS 55; BP_DIAS 73
[2017-09-24] MEDS: FAMOTIDINE 20 MG TABLET PO SCH (08:24)
[2017-09-24] MEDS: FOLIC ACID 1 MG TABLET PO SCH (08:24)
[2017-09-24] MEDS: CALCIUM CIT/VITAMIN D3 200 MG-250 UNITS TABLET PO SCH (08:24)
[2017-09-24] MEDS: DOCUSATE SODIUM 250 MG CAPSULE PO SCH (08:25)
[2017-09-24 11:17] LABS: GLUCOSE,POINT OF CARE 129 MG/DL (70-110)
[2017-09-24] MEDS ORDERED: LOSA25TA2 PO (13:48)
[2017-09-24] MEDS ORDERED: TAMS-1 PO (13:48)
[2017-09-24] MEDS ORDERED: FAMO20 PO (13:48)
[2017-09-24] MEDS ORDERED: FOLI1 PO (13:48)
== END 2017-09-24 14:00 | disposition home health service (06) | DRG 56 ==
LOC: 2WR 18:20
PROVIDERS: ADMIT Physical Medicine & Rehabilitation; ATTEND Physical Medicine & Rehabilitation
DX: I69.351 Hemiplegia and hemiparesis following cerebral infarction affecting right dominant side (principal); I61.0 Nontraumatic intracerebral hemorrhage in hemisphere, subcortical; D61.818 Other pancytopenia; R47.01 Aphasia; M32.9 Systemic lupus erythematosus, unspecified; E11.9 Type 2 diabetes mellitus without complications; I10 Essential (primary) hypertension; K70.9 Alcoholic liver disease, unspecified; K74.60 Unspecified cirrhosis of liver; N40.0 Benign prostatic hyperplasia without lower urinary tract symptoms; R32 Unspecified urinary incontinence; Z83.3 Family history of diabetes mellitus; Z88.1 Allergy status to other antibiotic agents
CPT/HCPCS: 74000; 82962; 87081; 92507; 92508; 92523; 92526; 97032; 97112; 97116; 97150; 97163; 97167; 97530; 97535; 99366